=== PATIENT | female | born 1980 | race African-American/Black ===

== ENCOUNTER 2016-10-09 12:21 | Emergency (ER) | payer MEDICAID ==
[2016-10-09 12:45] VITALS: BP 115/68
[2016-10-09] MEDS ORDERED: IBUPROFEN 600 MG TABLET PO ONE (12:49)
--- NOTE | 2016-10-09 12:49 | ER Document Report ---
ED Medical Screen (RME) - General Stated Complaint: SORE THROAT Time seen by provider: 12:47 Mode of Arrival: Ambulatory Information source: Patient Notes: 36-year-old female presents to ED for runny nose cough sore throat that is burning for the last 2 weeks. Denies any fevers. Last menstrual period September 27. I have greeted and performed a rapid initial assessment of this patient. A comprehensive ED assessment and evaluation of the patient, analysis of test results and completion of medical decision making process will be conducted by an additional ED providers. TRAVEL OUTSIDE OF THE [place] IN LAST 30 DAYS: No - Related Data Allergies/Adverse Reactions: No Known Allergies Allergy (Verified 10/09/16 12:47) Physical Exam - Vital signs Vitals: Temp Pulse Resp BP Pulse Ox 98.3 F 78 18 115/68 96 10/09/16 12:44 10/09/16 12:44 10/09/16 12:44 10/09/16 12:44 10/09/16 12:44 Course - Vital Signs Vital signs: Temp Pulse Resp BP Pulse Ox 98.3 F 78 18 115/68 96 10/09/16 12:44 10/09/16 12:44 10/09/16 12:44 10/09/16 12:44 10/09/16 12:44
[2016-10-09] MEDS ORDERED: PSEUDOEPHEDRINE HCL 30 MG TABLET PO ONE (14:54)
--- NOTE | 2016-10-09 15:00 | ER Document Report ---
HPI - HPI Patient complains to provider of: cough, sore throat Onset: Other - 2 weeks Onset/Duration: Persistent Quality of pain: Achy Pain Level: 3 Context: Patient reports cough, congestion and sore throat for the past 2 weeks. Patient denies any fever. Patient does report recent sick contacts. Associated Symptoms: Nonproductive cough, Rhinnorhea, Sore throat. denies: Chest pain, Fever, Shortness of breath Exacerbated by: Denies Relieved by: Denies Similar symptoms previously: Yes Recently seen / treated by doctor: No - ROS ROS below otherwise negative: Yes Systems Reviewed and Negative: Yes All other systems reviewed and negative - CONSTITUTIONAL Constitutional: DENIES: Fever, Chills - EENT EENT: REPORTS: Sore Throat, Nasal Drainage-Clear, Congestion - NEURO Neurology: DENIES: Headache - CARDIOVASCULAR Cardiovascular: DENIES: Chest pain - RESPIRATORY Respiratory: REPORTS: Coughing. DENIES: Trouble Breathing - GASTROINTESTINAL Gastrointestinal: DENIES: Abdominal Pain, Nausea, Patient vomiting, Diarrhea - REPRODUCTIVE Reproductive: DENIES: : - MUSCULOSKELETAL Musculoskeletal: DENIES: Back Pain - DERM Skin Color: Normal Skin Problems: None Past Medical History - General Information source: Patient - Social History Smoking Status: Never Smoker Chew tobacco use (# tins/day): No Frequency of alcohol use: None Drug Abuse: None Occupation: none Lives with: Family Family History: None Patient has suicidal ideation: No Patient has homicidal ideation: No Renal/ Medical History: Denies: Hx Peritoneal Dialysis Surgical Hx: Negative Vertical Provider Document - CONSTITUTIONAL Agree With Documented VS: Yes Exam Limitations: No Limitations General Appearance: WD/WN, No Apparent Distress - INFECTION CONTROL TRAVEL OUTSIDE OF THE [place] IN LAST 30 DAYS: No - HEENT HEENT: Atraumatic, Normocephalic, Pharyngeal Tenderness. negative: Pharyngeal Exudate, Pharyngeal Erythema, Tympanic Membrane Red, Tympanic Membrane Bulging Notes: Clear rhinorrhea, swollen nasal mucosa - NECK Neck: Normal Inspection, Supple. negative: Lymphadenopathy-Left, Lymphadenopathy-Right - RESPIRATORY Respiratory: Breath Sounds Normal, No Respiratory Distress, Chest Non-Tender O2 Sat by Pulse Oximetry: 96 - CARDIOVASCULAR Cardiovascular: Regular Rate, Regular Rhythm, No Murmur - BACK Back: Normal Inspection - MUSCULOSKELETAL/EXTREMETIES Musculoskeletal/Extremeties: TSERING YEPEZ - NEURO Level of Consciousness: Awake, Alert, Appropriate Motor/Sensory: No Motor Deficit - DERM Integumentary: Warm, Dry, No Rash Course - Vital Signs Vital signs: Temp Pulse Resp BP Pulse Ox 98.3 F 78 18 115/68 96 10/09/16 12:44 10/09/16 12:44 10/09/16 12:44 10/09/16 12:44 10/09/16 12:44 - Laboratory Laboratory results interpreted by me: 10/09/16 14:55 Labs- Entire Visit 10/09/16 13:00 Group A Strep Rapid NEGATIVE 10/09/16 19:17 Discharge - Discharge Clinical Impression: Sore throat Upper respiratory infection Qualifiers: URI type: unspecified URI Qualified Code(s): J06.9 - Acute upper respiratory infection, unspecified Condition: Stable Disposition: HOME, SELF-CARE Instructions: Upper Respiratory Illness ([facility]), Sore Throat ([facility]) Additional Instructions: Return immediately for any new or worsening symptoms Followup with your primary care provider, call tomorrow to make a followup appointment Throat culture is pending, we will call if you need any different treatment Prescriptions: Fluticasone Propionate [Flonase Nasal Hopewell 50 Mcg/Hopewell 16 gm] 2 spray NASL DAILY #1 bottle Guaifenesin/Pseudoephedrne HCl [Mucinex D ER Tablet] 1 each PO Q12 PRN #12 tab.er.12h PRN Reason: Naproxen [Naprosyn 250 Nmg Tablet] 1 tab PO BID #14 tablet Forms: Return to School, Return to Work Referrals: [facility] [Provider Group] - Follow up tomorrow
== END 2016-10-09 15:10 | disposition home or self-care (01) ==
LOC: ER 12:21
DX: J06.9 Acute upper respiratory infection, unspecified (principal); J02.9 Acute pharyngitis, unspecified; R05 Cough; J34.89 Other specified disorders of nose and nasal sinuses
CPT/HCPCS: 99283; 87070; 87880; J3490

== ENCOUNTER 2020-02-16 15:46 | Emergency (ER) | payer BC, MEDICAID ==
--- NOTE | 2020-02-16 16:03 | ER Document Report ---
ED Medical Screen (RME) - General Chief Complaint: Leg Pain Stated Complaint: LEG PAIN Primary Care Provider: GRUPO NEWMAN MD [Primary Care Provider] - Follow up as needed Notes: Patient is a 39-year-old -[place] female with no significant past medical history presents the emergency department with states that she woke up this way 3 days ago. Nchief complaint of pain to the right lower extremity with a palpable knot to the lateral edge of the extremity just above the ankle. States the proximal calf is also tender. She denies any injury, fall or trauma. No numbness tingling or weakness. Incoming heart rate tachycardic. Patient not on any oral contraceptives and does not smoke. I have treated and performed a rapid initial assessment of this patient. A comprehensive ED assessment and evaluation of the patient, analysis of test results and completion of medical decision making process will be conducted by additional ED providers. PHYSICAL EXAMINATION: GENERAL: Well-appearing, well-nourished and in no acute distress. A&Ox4. Answers questions appropriately. TRAVEL OUTSIDE OF THE [place] IN LAST 30 DAYS: No - Related Data Allergies/Adverse Reactions: No Known Allergies Allergy (Verified 10/09/16 12:47) Past Medical History Renal/ Medical History: Denies: Hx Peritoneal Dialysis Physical Exam - Vital signs Vitals: Temp Pulse Resp BP Pulse Ox 99.2 F 119 H 16 131/82 H 100 02/16/20 15:58 02/16/20 15:58 02/16/20 15:58 02/16/20 15:58 02/16/20 15:58 Course - Vital Signs Vital signs: Temp Pulse Resp BP Pulse Ox 99.2 F 119 H 16 131/82 H 100 02/16/20 15:58 02/16/20 15:58 02/16/20 15:58 02/16/20 15:58 02/16/20 15:58 Doctor's Discharge - Discharge Referrals: GRUPO NEWMAN MD [Primary Care Provider] - Follow up as needed
[2020-02-16 16:24] LABS: ABSOLUTE BASOPHILS # (AUTO) 0.1 10^3/uL (0.0-0.2); ABSOLUTE EOSINOPHILS # (AUTO) 0.1 10^3/uL (0.0-0.6); ABSOLUTE LYMPHOCYTES (AUTO) 3.5 10^3/uL (0.5-4.7); ABSOLUTE MONOCYTES (AUTO) 0.7 10^3/uL (0.1-1.4); ABSOLUTE NEUT (AUTO) 7.2 10^3/uL (1.7-8.2); BASOPHILS % (AUTO) 0.7 % (0-2); EOSINOPHILS % (AUTO) 1.1 % (0-6); HEMATOCRIT 37.7 % (36.0-47.0); HEMOGLOBIN 12.7 g/dL (12.0-15.5); LYMPHOCYTES % (AUTO) 30.1 % (13-45); MEAN CORPUSCULAR HGB CONC 33.7 g/dL (32.0-36.0); MEAN CORPUSCULAR VOLUME 83 fl (80-97); MONOCYTES % (AUTO) 6.1 % (3-13); PLATELET COUNT 455 10^3/uL (150-450); RED BLOOD COUNT 4.53 10^6/uL (3.72-5.28); RED CELL DISTRIBUTION WIDTH 13.6 % (11.5-14.0); TOTAL CELLS COUNTED % (AUTO) 100 %; WHITE BLOOD COUNT 11.7 10^3/uL (4.0-10.5)
[2020-02-16 16:43] LABS: ALBUMIN 4.4 g/dL (3.5-5.0); ALKALINE PHOSPHATASE 66 U/L (38-126); ANION GAP 7 (5-19); ASPARTATE AMINO TRANSFERASE 15 U/L (14-36); BILIRUBIN,TOTAL 0.3 mg/dL (0.2-1.3); BLOOD UREA NITROGEN 10 mg/dL (7-20); CALCIUM 9.8 mg/dL (8.4-10.2); CARBON DIOXIDE 25 mmol/L (22-30); CHLORIDE 106 mmol/L (98-107); GLUCOSE 124 mg/dL (75-110); TOTAL PROTEIN 7.9 g/dL (6.3-8.2)
--- NOTE | 2020-02-16 17:26 | RADIOLOGY REPORT (SQ) ---
EXAM DESCRIPTION: VENOUS UNILATERAL LOWER IMAGES COMPLETED DATE/TIME: 02/16/2020 5:14 pm REASON FOR STUDY: RLE pain COMPARISON: None. TECHNIQUE: Dynamic and static arndt scale and color images acquired of the right leg venous system. S elected spectral images acquired with additional compression and augmentation maneuvers. The contrala teral common femoral vein and saphenofemoral junction were also imaged. Images stored on PACS. LIMITATIONS: None. FINDINGS: COMMON FEMORAL: Normal phasicity, compression and augmentation. No visualized echogenic ma terial on arndt scale. No defects on color images. FEMORAL: Normal compression and augmentation. No visualized echogenic material on arndt scale. No defe cts on color images. POPLITEAL: Normal compression, augmentation. No visualized echogenic material on arndt scale. No defec ts on color images. CALF VESSELS: Normal compression, augmentation. No visualized echogenic material on arndt scale. No de fects on color images. GSV and SSV: Normal compression, augmentation. No visualized echogenic material on arndt scale. No def ects on color images. ANY DEEP VENOUS INSUFFICIENCY: Not evaluated. ANY EVIDENCE OF POPLITEAL CYST: No. OTHER: No other significant finding. CONTRALATERAL COMMON FEMORAL VEIN AND SAPHENOFEMORAL JUNCTION: Normal phasicity, compression and augmentation. No visualized echogenic material on arndt scale. No de fects on color images. IMPRESSION: NO EVIDENCE DVT OR SVT IN THE RIGHT LEG. TECHNICAL DOCUMENTATION: JOB ID: [id number] 2010 [employer]- All Rights Reserved Reading location - IP/workstation name: [email or web address]
--- NOTE | 2020-02-16 18:26 | ER Document Report ---
Entered by WOOD BRICE SCRIBE 02/16/20 1749 Acting as scribe for:MILE BELL MD ED Extremity Problem, Lower - General Chief Complaint: Leg Pain Stated Complaint: LEG PAIN Time Seen by Provider: 02/16/20 17:33 Primary Care Provider: GRUPO NEWMAN MD [EMERITUS] - Follow up as needed Mode of Arrival: Ambulatory Information source: Patient Notes: This 39-year-old female patient presents to the emergency department today with complaints of a 2-day history of right lower extremity pain. Patient states there has been no trauma or injury that she thinks could have caused this pain. Patient is not a smoker, she is not on control, she has no personal or family history of DVT/PE. She denies any chest pain or shortness of breath. TRAVEL OUTSIDE OF THE [place] IN LAST 30 DAYS: No - Related Data Allergies/Adverse Reactions: No Known Allergies Allergy (Verified 02/16/20 16:04) Past Medical History - General Information source: Patient - Social History Smoking Status: Never Smoker Cigarette use (# per day): No Chew tobacco use (# tins/day): No Frequency of alcohol use: None Drug Abuse: None Lives with: Family Family History: None - Medical History Medical History: Negative Past Surgical History: Reports: Hx Tubal Ligation - 2009 Review of Systems - Review of Systems Constitutional: No symptoms reported EENT: No symptoms reported Cardiovascular: denies: Chest pain Respiratory: denies: Short of breath Gastrointestinal: No symptoms reported Genitourinary: No symptoms reported Female Genitourinary: No symptoms reported Musculoskeletal: See HPI, Muscle pain - RLE Skin: No symptoms reported Hematologic/Lymphatic: No symptoms reported Neurological/Psychological: No symptoms reported -: Yes All other systems reviewed and negative Physical Exam - Vital signs Vitals: Temp Pulse Resp BP Pulse Ox 99.2 F 119 H 16 131/82 H 100 02/16/20 15:58 02/16/20 15:58 02/16/20 15:58 02/16/20 15:58 02/16/20 15:58 - Notes Notes: Physical Exam: General: Alert, appears well. HEENT: Normocephalic. Atraumatic. PERRL. Extraocular movements intact. Oropharynx clear. Neck: Supple. Non-tender. Respiratory: No respiratory distress. Clear and equal breath sounds bilaterally. Cardiovascular: Regular rate and rhythm. Abdominal: Normal Inspection. Non-tender. No distension. Normal Bowel Sounds. Back: No gross abnormalities. Extremities: Moves all four extremities. Upper extremities: Normal inspection. Normal ROM. Lower extremities: Tenderness with palpation over the right anterior tibialis muscle. Neurological: Normal cognition. AAOx4. Normal speech. Psychological: Normal affect. Normal Mood. Skin: Warm. Dry. Normal color. Course - Re-evaluation Re-evalutation: 02/16/20 17:57 Patient resting comfortably not showing any signs of distress at this time. - Vital Signs Vital signs: Temp Pulse Resp BP Pulse Ox 98.3 F 138 H 15 127/73 H 99 02/16/20 18:05 02/16/20 18:05 02/16/20 18:05 02/16/20 18:05 02/16/20 18:05 02/16/20 17:57 On arrival patient had a low-grade temperature 99.2 with a pulse of 119 satu ration 100% on room air respiratory rate 16. Blood pressure stable. Repeat vital signs will be performed prior to discharge. - Laboratory Result Diagrams: 02/16/20 16:10 02/16/20 16:10 Laboratory results interpreted by me: 02/16/20 02/16/20 16:10 16:10 WBC 11.7 H Plt Count 455 H Glucose 124 H 02/16/20 17:58 Returns within normal limits mildly elevated white count 11.7 with a platelet count of 455 glucose 124. 02/16/20 17:59 No evidence for infection patient has no no report of cough sore throat urinary discomfort skin rash or any signs of infection viral or bacterial. Patient's greatest concern was explanation for why anterior tibial muscle was tender. Patient has had a venous Doppler study of her right lower extremity. - Diagnostic Test Radiology reviewed: Image reviewed, Reports reviewed Radiology results interpreted by me: 02/16/20 17:59 Radiology report shows that there is no evidence for DVT in the right lower extremity. Discharge - Discharge Clinical Impression: Pain in right leg, Inappropriate sinus tachycardia Condition: Stable Disposition: HOME, SELF-CARE Additional Instructions: Today you had a Doppler venous ultrasound of your right lower leg showing no evidence for DVT. However he did have a sinus tachycardia which is a fast heart rate that seems to be episodic at times. There is such a condition such as inappropriate sinus tachycardia which is what I believe is occurring today with you. Based on your laboratories there is no evidence for DVT as well as the Doppler venous study did not show any DVT in your right leg where your pain is. He denied any shortness of breath no any chest pain. He also do not have risk factors that include smoking or been on control pills. With that said that you have been discharged home to take ibuprofen as needed for pain and there is just one other test that is still outstanding at this time and if it is positive we will give you a call. That test result is called the d-dimer which sometimes is elevated 1 person has blood clots in lower extremity. However we do not believe you have any blood clots in your lower extremity inasmuch as the Doppler ultrasound was normal. Referrals: GRUPO NEWMAN MD [EMERITUS] - Follow up as needed I personally performed the services described in the documentation, reviewed and edited the documentation which was dictated to the scribe in my presence, and it accurately records my words and actions.
[2020-02-16 18:52] VITALS: BP 127/93
--- NOTE | 2020-02-16 19:57 | EKG REPORT ---
SEVERITY:- OTHERWISE NORMAL ECG - SINUS TACHYCARDIA : Confirmed by: Carlos Wan MD 16-Feb-2020 19:57:17
== END 2020-02-16 18:57 | disposition home or self-care (01) ==
LOC: ER 15:46
DX: M79.604 Pain in right leg (principal); R00.0 Tachycardia, unspecified; R50.9 Fever, unspecified
CPT/HCPCS: 36415; 80053; 84703; 85025; 85379; 93005; 93010; 93971; 99284